=== PATIENT | female | born 1985 | race African-American/Black ===

== ENCOUNTER 2017-01-25 07:44 | Emergency (ER) | payer SELFPAY ==
[~2017-01-25] VITALS: Ht 167.6 cm; Wt 84.1 kg
[2017-01-25] MEDS ORDERED: KETOROLAC TROMETHAMINE 30 MG/ML VIAL IVP ONE (08:30)
[2017-01-25] MEDS ORDERED: ACETAMINOPHEN 1000 MG/ISO-OSM 100 ML IV ONE (10:00)
[2017-01-25 10:35] VITALS: BP 118/72
== END 2017-01-25 11:21 | disposition home or self-care (01) ==
LOC: EMS 07:46
DX: M54.5 Low back pain (principal); G89.29 Other chronic pain; Z88.5 Allergy status to narcotic agent; Z88.2 Allergy status to sulfonamides; Z88.1 Allergy status to other antibiotic agents
CPT/HCPCS: 96374; 96375; 99284; J0131; J1885